=== PATIENT | male | born 1990 | race Caucasian/White ===

== ENCOUNTER 2018-05-30 09:07 | Emergency (ER) | payer BC ==
[2018-05-30 09:13] VITALS: BP 126/90
[2018-05-30] MEDS ORDERED: AZITHROMYCIN 250 MG TAB PO ONE (09:42)
--- NOTE | 2018-05-30 09:42 | EDPHY ---
General Time Seen by Provider: 05/30/18 09:29 Narrative: CHIEF COMPLAINT: I think I have a sexually transmitted infection HISTORY OF PRESENT ILLNESS: Patient presents by private vehicle with complaints of dysuria and possible sexually transmitted infection. He reports sex with a male partner over the past months nonproductive. For the last 2-3 days he has had some dysuria, urethral discharge and occasional penile pain. No testicular pain at any time. No fever. No abdominal pain or flank pain. Symptoms wax and wane. He still has some dysuria at times. He has no other symptoms or associated complaints. REVIEW OF SYSTEMS: 10 systems were reviewed and negative with the exception of the elements mentioned in the history of present illness. PCP: None currently SPECIALISTS: None PAST MEDICAL HISTORY: Uncomplicated PAST SURGICAL HISTORY: None SOCIAL HISTORY: Nonsmoker. Lives independently. Works in construction FAMILY HISTORY: Noncontributory EXAMINATION: Vitals: Triage VS reviewed General Appearance: Alert, no distress. Nontoxic well-appearing. Head: normocephalic, atraumatic Eyes: Pupils equal and round, no conjunctival pallor or injection Respiratory: No retractions or distress. Cardiovascular: Regular rate with good signs of perfusion. Gastrointestinal: Abdomen is soft and nontender no tympany rigidity. No guarding. : Circumcised penis with clear urethral drainage. No skin changes of the scrotum. No testicular tenderness. Normal cremasteric. Neurological: A&O, nonfocal, normal gait Skin: Warm and dry, no rash. No cellulitis Extremities: Nontender, no pedal edema Psychiatric: Mood and affect normal DIFFERENTIAL DIAGNOSES: Including but not limited to UTI, sexually transmitted infection, urethritis, cystitis MDM: 9:40 a.m. Dysuria with stated concern for sexually transmitted infection. Patient has elected to be treated prophylactically. I have ordered Rocephin IM, Zithromax p. O.. I will provide a prescription for a prophylactic dose of Flagyl for discharge. Urinalysis will be obtained as well. We discussed follow up with the Health Department or primary care physician for HIV and/or hepatitis testing. 10:00 a.m. Urinalysis unremarkable. Discharge home as above. Recommend that he contact his partner to discuss their testing need. Strict ED precautions for any worsening symptoms or any testicular pain at any time. SUPERVISION: This patient was independently evaluated without direct involvement of or examination by the attending physician. CONSULTATION: - History History Review: I reviewed the patient's medical records Smoking Status: Current every day smoker - Objective Vital Signs: Initial Vital Signs Temperature (C) 97.5 F 05/30/18 09:10 Heart Rate 81 05/30/18 09:10 Respiratory Rate 17 05/30/18 09:10 Blood Pressure 126/90 H 05/30/18 09:10 O2 Sat (%) 98 05/30/18 09:10 O2 Delivery Mode Room Air Allergies/Adverse Reactions: No Known Allergies Allergy (Unverified 05/30/18 09:09) Home Medications: Medication Instructions Recorded metroNIDAZOLE [Flagyl 500 mg (*)] 2,000 mg PO ONCE #4 tab 05/30/18 Laboratory Results: 05/30/18 05/30/18 09:30 09:00 Urine Color COLORLESS Urine Appearance CLEAR Urine pH 7.0 (5.0-7.5) Ur Specific [place] < 1.001 L (1.002-1.030) Urine Protein NEGATIVE (NEGATIVE) Urine Ketones NEGATIVE (NEGATIVE) Urine Blood NEGATIVE (NEGATIVE) Urine Nitrate NEGATIVE (NEGATIVE) Urine Bilirubin NEGATIVE (NEGATIVE) Urine Urobilinogen NEGATIVE EU EU (0.2-1.0) Ur Leukocyte Esterase TRACE H (NEGATIVE) Urine RBC NONE SEEN /hpf /hpf (0-3) Urine WBC 1-3 /hpf /hpf (0-3) Ur Epithelial Cells NONE SEEN /lpf /lpf (NONE-1+) Urine Glucose NEGATIVE (NEGATIVE) C.trachomatis RNA (TMA) Pending N.gonorrhoeae RNA (TMA) Pending Medications Given: Discontinued Medications Azithromycin (Zithromax) 1,000 mg PO EDNOW ONE PRN Reason: Protocol Stop: 05/30/18 09:43 Last Admin: 05/30/18 10:09 Dose: 1,000 mg Ceftriaxone Sodium (Rocephin Im Syringe) 250 mg IM ONCE ONE PRN Reason: Protocol Stop: 05/30/18 09:43 Last Admin: 05/30/18 10:09 Dose: 250 mg Departure - Departure Disposition: Home, Routine, Self-Care Clinical Impression: Dysuria, Urethral discharge in male Condition: Good Instructions: Metronidazole (By mouth), Sexually Transmitted Diseases (ED), Dysuria (ED) Additional Instructions: 1. Flagyl x1 as prescribed. Take with a meal 2. Return here for any testicular pain or swelling or persistent discharge or dysuria 3. Notify your sexual partners of your visit if your test returned positive tomorrow. We will contact her with those results. 4. Recommend follow up with the Health Department for further testing if warranted Referrals: Ameena Calixto MD [Medical Doctor] - As per Instructions Physician,[facility] Dept[facility] [Medical Doctor] - As per Instructions Prescriptions: metroNIDAZOLE [Flagyl 500 mg (*)] 2,000 mg PO ONCE #4 tab
[2018-05-31 12:09] LABS: GC AMPLIFICATION GENPROBE POSITIVE (NEGATIVE)
== END 2018-05-30 10:13 | disposition home or self-care (01) ==
LOC: EEVIPCON 09:07
DX: R30.0 Dysuria (principal); R36.9 Urethral discharge, unspecified; F17.200 Nicotine dependence, unspecified, uncomplicated
CPT/HCPCS: J0696